=== PATIENT | female | born 1980 | race Caucasian/White ===

== ENCOUNTER 2019-10-30 19:44 | Emergency (ER) | payer MEDICAID, OTHER ==
[~2019-10-30] VITALS: Ht 170.2 cm; Wt 136.1 kg
[2019-10-30 19:44] VITALS: BP_SYST 195
[2019-10-30] MEDS ORDERED: DIPH-TET-PERTUS Vaccine 0.5 ML VIAL (ADACEL) I.M. ONE (20:45)
[2019-10-30 20:55] VITALS: BP_SYST 189
== END 2019-10-30 20:55 | disposition home or self-care (01) ==
LOC: SED 19:44
DX: S60.311A Abrasion of right thumb, initial encounter (principal); I10 Essential (primary) hypertension; X58.XXXA Exposure to other specified factors, initial encounter; Y93.89 Activity, other specified; Y92.89 Other specified places as the place of occurrence of the external cause; Y99.8 Other external cause status
CPT/HCPCS: 81025; 90715; 99283